=== PATIENT | female | born 1960 | race Two or more races ===

== ENCOUNTER 2024-08-16 20:42 | Emergency (ER) | payer OTHER ==
[~2024-08-16] VITALS: Ht 157.5 cm; Wt 78.9 kg
[2024-08-16] MEDS ORDERED: FAMOTIDINE/PF 20 MG in 0.9 % SODIUM CHLORIDE 8 ML IV PUSH STA (21:29)
[2024-08-16] MEDS ORDERED: CEFTRIAXONE SODIUM 1,000 MG VIAL IV ONE (21:30)
[2024-08-16] MEDS ORDERED: ONDANSETRON HCL 2 MG/ML VIAL IV ONE (21:30)
[2024-08-16 21:57] LABS: BASO % 0.7 % (0.1-1.2); EOS # 0.07 (0.04-0.54); EOS % 0.8 % (0.7-7.0); LYMPH # 1.30 (1.18-3.74); LYMPH % 14.8 % (19.3-53.1); MEAN PLATELET VOLUME 9.80 fl (9.4-12.4); MONO # 0.63 (0.24-0.82); MONO % 7.2 % (4.7-12.5); NEUT # 6.65 (1.56-6.13); NEUT % 75.9 % (34.0-71.1); RED CELL DISTRIBUTION WIDTH 14.6 % (11.6-14.4)
[2024-08-16 22:22] LABS: URINE APPEARANCE Clear; URINE BILIRRUBIN Negative (NEGATIVE); URINE BLOOD Moderate; URINE COLOR Yellow; URINE GLUCOSE Negative (NEGATIVE); URINE LEUKOCYTE Trace; URINE NITRATE Negative; URINE PROTEIN Negative (NEGATIVE); URINE UROBILINOGEN 0.2 E.U./dl
[2024-08-16 22:22] LABS: ALT/SGPT 31.0 U/L (12-78); AST/SGOT 27.0 U/L (15-37); BILIRUBIN TOTAL 1.56 mg/dL (0.3-1.2); BUN CREA RATIO 16.0 (7.0-25.0); CREATININE SERUM 0.83 mg/dL (0.55-1.02); GFR 69.89; GLOBULINA 3.4 G/DL (2.4-3.5); GLUCOSE FASTING 115.0 mg/dL (65-100); OSMOLALITY SERUM 277.0 MOSM/KG (275-295)
[2024-08-16 22:26] LABS: URINE EPITHELIAL CELLS 5.0 uL (0.0-38.8); URINE RBC 88.5 uL (0.0-20.8); URINE WBC 7.3 uL (0.0-23.2)
[2024-08-16 22:29] LABS: URINE BACTERIA 2.3 uL (0.0-1933); URINE CAST 0.14 uL (0.0-1.40); URINE KETONE 40 (NEGATIVE)
[2024-08-16] MEDS ORDERED: KETOROLAC TROMETHAMINE 30 MG VIAL IV ONE (23:45)
[2024-08-17] MEDS ORDERED: CEPHALEXIN500 M1 PO (00:08)
== END 2024-08-17 01:23 | disposition home or self-care (01) ==
LOC: ER 20:42
PROVIDERS: General Practice
DX: N30.90 Cystitis, unspecified without hematuria (principal); I10 Essential (primary) hypertension; R10.32 Left lower quadrant pain